=== PATIENT | male | born 1955 | race Caucasian/White ===

== ENCOUNTER 2018-07-30 09:57 | Day surgery (SDC) | payer OTHER ==
[2018-07-30 10:34] VITALS: BP 148/80
[2018-07-30] MEDS ORDERED: PROPOFOL 10 MG/ML, 20ML ONE (10:55)
[2018-07-30] MEDS ORDERED: ONDANSETRON 2MG/ML, 2ML ONE (10:55)
[2018-07-30] MEDS ORDERED: DEXAMETHASONE 4 MG/ML, 1ML ONE (10:55)
[2018-07-30] MEDS ORDERED: CEFAZOLIN 1,000 MG ONE (10:55)
[2018-07-30] MEDS ORDERED: ROCURONIUM 10MG/ML,5ML ONE (10:55)
[2018-07-30] MEDS ORDERED: SUCCINYLCHOLINE 20 MG/ML, 10ML ONE (10:55)
[2018-07-30] MEDS ORDERED: BUPIVACAINE/PF-EPI 0.5% 1:200K ONE (11:13)
[2018-07-30] MEDS ORDERED: FENTANYL PF 100 MCG/2ML ONE (11:25)
[2018-07-30] MEDS ORDERED: MIDAZOLAM 1 MG/ML, 2ML ONE (11:25)
[2018-07-30] MEDS ORDERED: BUPIVACAINE/PF-EPI 0.5% 1:200K INFIL ONE (11:46)
[2018-07-30] MEDS ORDERED: KETOROLAC 30 MG/1 ML IV PRN (12:00)
[2018-07-30] MEDS ORDERED: hydrALAzine 20 MG/ML, 1ML IV PRN (12:00)
[2018-07-30] MEDS ORDERED: LABETALOL 5MG/ML, 20ML IV PRN (12:00)
[2018-07-30] MEDS ORDERED: ALBUTEROL SULFATE 2.5 MG/3 ML NPPB PRN (12:00)
[2018-07-30] MEDS ORDERED: MEPERIDINE/PF 25MG/0.5ML IVPush PRN (12:00)
[2018-07-30] MEDS ORDERED: FENTANYL PF 100 MCG/2ML IV PRN (12:00)
[2018-07-30] MEDS ORDERED: HYDROmorphone 1 MG/ML, 1ML AMP IV PRN (12:00)
[2018-07-30] MEDS ORDERED: ONDANSETRON 2MG/ML, 2ML IVPush PRN (12:00)
[2018-07-30] MEDS ORDERED: PROMETHAZINE 25 MG/ML, 1ML IV PRN (12:00)
[2018-07-30] MEDS ORDERED: PLEASE ENTER HEIGHT AND WEIGHT MC SCH (12:00)
[2018-07-30] MEDS ORDERED: METOCLOPRAMIDE 5 MG/ML, 2ML IV PRN (12:00)
[2018-07-30] MEDS ORDERED: OXYcodone 5 MG/5 ML ORAL.SOL UDC PO PRN (12:00)
[2018-07-30] MEDS ORDERED: PLEASE ENTER ALLERGIES MC SCH (12:00)
[2018-07-30 13:10] VITALS: BP 119/54
[2018-07-30] MEDS ORDERED: LISI10TA2 PO (14:17)
[2018-07-30] MEDS ORDERED: ASPI81TA45 PO (14:17)
[2018-07-30] MEDS ORDERED: ONDANSETRON 2MG/ML, 2ML IV PRN (14:30)
[2018-07-30] MEDS ORDERED: HYDROmorphone 1 MG/ML, 1ML AMP IM PRN (14:30)
[2018-07-30] MEDS ORDERED: HYDROcodone/APAP 5/325 TABLET PO PRN (14:30)
[2018-07-30] MEDS ORDERED: OXYC5TAB2 PO (14:46)
[2018-07-30] MEDS ORDERED: ONDA4TAB7 PO ×2 (14:46→14:49)
== END 2018-07-30 15:15 | disposition home or self-care (01) ==
LOC: OR 09:57 → 4NOR 10:02 → OR 15:15
PROVIDERS: ATTEND Orthopaedic Surgery
DX: G56.22 Lesion of ulnar nerve, left upper limb (principal)
CPT/HCPCS: 24359; 64718; J0330; J0690; J1100; J2250; J2405; J2704; J3010; G0378